=== PATIENT | female | born 1985 | race Caucasian/White ===

== ENCOUNTER 2023-04-22 22:02 | Emergency (ER) | payer OTHER, SELFPAY ==
[2023-04-22 22:12] VITALS: BP 149/80; PULSE 98; RESP 17; TEMP 36.8; O2SAT 100; BMI 38.6
--- NOTE | 2023-04-22 22:33 | XR_ITS ---
PROCEDURE INFORMATION: Exam: XR Right Forearm Exam date and time: 04/22/2023 10:31 PM Age: 37 years old Clinical indication: Pain; Lower or forearm; Right; Additional info: Fall TECHNIQUE: Imaging protocol: Radiologic exam of the right forearm. Views: 2 views. COMPARISON: CR Wrist R 04/22/2023 10:29 PM FINDINGS: Bones/joints: Normal. Soft tissues: Normal. IMPRESSION: No acute findings.
--- NOTE | 2023-04-22 22:33 | XR_ITS ---
PROCEDURE INFORMATION: Exam: XR Right Wrist Exam date and time: 04/22/2023 10:29 PM Age: 37 years old Clinical indication: Pain; Wrist; Right; Additional info: Fall TECHNIQUE: Imaging protocol: Radiologic exam of the right wrist. Views: 3 or more views. COMPARISON: No relevant prior studies available. FINDINGS: Bones/joints: Normal. Soft tissues: Normal. IMPRESSION: No acute findings.
--- NOTE | 2023-04-22 22:47 | [facility].EDGENADL ---
Discharge Plan Disposition Chief Complaint: Extremity Injury, Upper Referrals Follow up/Referrals: Elli Ramos MD [Primary Care Provider] - See instructions Activity Restrictions/Add. Instructions Additional Instructions/Restrictions: At this time it was felt you are safe to be discharged home. If new or worsening symptoms please do not hesitate to return the emergency department. Clinical Impressions Clinical Impression: Sprain and strain of wrist Discharge ED Provider: Khadar Hernandez General Adult HPI General Chief complaint: Extremity Injury, Upper Stated complaint: [id number] fell rt wrist injury Time Seen by Provider: 04/22/23 22:34 Mode of Arrival: Family Vehicle Source of Information: Patient Limitations: No Limitations Description of Symptoms (Recalled from ER Triage Doc. by RN): 37 yo female presents with CC of right wrist injury following a fall inside her house. Stated her left ankle gave out and she fell landing on her right hand . Small raised area at the impact site. difficulty with AROM. Had taken ibu 400mg prior to the fall. Ice after the fall prior to coming in. H/O tendon release last year to same wrist. No hardware noted. History of Present Illness HPI narrative: Patient is a 37-year-old female with no pertinent past medical history who presents emergency department for evaluation of traumatic injury sustained in a fall. Patient twisted her left ankle falling on an outstretched right hand. Patient is right-handed. Due to bruising over her thenar eminence she presents here for continued evaluation. Patient has been able to bear weight on her ankle and denies other traumatic complaints. Related Data Allergies Allergy/AdvReac Type Severity Reaction Status Date / Time No Known Allergies Allergy Verified 04/22/23 22:33 [facility] Disclaimer: The information contained in this section may have been updated after the patient was seen, as this information can be updated by other users. Social History Smoking Status: Unknown if ever smoked alcohol intake: never current occupational status: other Travel in the last 8 weeks: None ROS Obtained: Yes Systems reviewed as appropriate & no additional complaints except as documented Physical Exam General General appearance: alert and in no apparent distress Head Head exam: atraumatic and normocephalic Eye Eye exam: Present PERRL and EOMI ENT ENT exam: Present mucous membranes moist Neck Neck exam: Present normal inspection Chest Chest inspection: Present normal inspection and symmetric chest wall rise Respiratory Respiratory exam: Absent respiratory distress Cardiovascular Cardiovascular exam: Present regular rate and normal rhythm Abdominal Exam Abdominal exam: Present soft Extremities Exam Extremities exam: Present other (Bruising over the distal radial volar forearm, bruising over the thenar eminence. Full range of motion of all the joints of the wrist, CMC, MCP, PIP, DIP joints. Capillary refill preserved in all digits. Palpable right radial pulse.) Neurological Exam Neurological exam: Present alert Psychiatric Psychiatric exam: Present normal affect Skin Skin exam: Present warm and dry Medical Decision Making Ollie Inquiry Pt receiving controlled substance: No Vital Signs: 04/22/23 22:12 Temperature 98.3 F Temperature Source Oral Pulse Rate [Right Brachial] 98 H Respiratory Rate 17 Blood Pressure [Right Arm] 149/80 H Blood Pressure Mean [Right Arm] 103 Blood Pressure Source [Right Arm] Automatic Cuff Blood Pressure Position [Right Arm] Sitting 02 Sat by Pulse Oximetry 100 Oxygen Delivery Method Room Air Orders (Tests/Meds): ORDERS Category Date Time Status Forearm XR right 2 views [XR forearm RT 2V] Stat Exams 04/22/23 22:33 Taken Wrist XR right minimum 3 views [XR wrist RT min 3V] Exams 04/22/23 22:33 Taken Stat Medical Decision Narrative: In summary patient is a 37-year-old
[2023-04-22 23:47] VITALS: BP 142/70; PULSE 78; RESP 18; TEMP 36.8; O2SAT 98
== END 2023-04-22 23:48 | disposition home or self-care (01) ==
LOC: ER 22:25
PROVIDERS: Emergency Provider Emergency Medicine; PCP Family Medicine Addiction Medicine
DX: S63.501A Unspecified sprain of right wrist, initial encounter (principal); S66.911A Strain of unspecified muscle, fascia and tendon at wrist and hand level, right hand, initial encounter; M25.531 Pain in right wrist; W18.30XA Fall on same level, unspecified, initial encounter
CPT/HCPCS: 73090; 73110; 99283